=== PATIENT | female | born 2000 | race Two or more races ===

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

== ENCOUNTER 2021-07-28 23:45 | Observation (INO) | payer MEDICAID, OTHER ==
[~2021-07-28] VITALS: Ht 165.1 cm; Wt 105.2 kg
[2021-07-29] MEDS ORDERED: PNV1TABL76 PO (00:30)
[2021-07-29] MEDS ORDERED: ACETAMINOPHEN 500MG TABLET PO PRN (01:30)
[2021-07-29 02:30] LABS: CLARITY URINE CLOUDY (CLEAR); COLOR URINE YELLOW (YELLOW); KETONES URINE TRACE (NEGATIVE); LEUKOCYTE ESTERASE URINE NEGATIVE (NEGATIVE); NITRITE URINE NEGATIVE (NEGATIVE); OCCULT BLOOD URINE NEGATIVE (NEGATIVE); PROTEIN URINE TRACE (NEGATIVE); SPECIFIC GRAVITY URINE 1.027 (1.005-1.030)
== END 2021-07-29 03:50 | disposition home or self-care (01) ==
LOC: 8 EST LDRP 23:45
PROVIDERS: ADMIT Obstetrics & Gynecology; ATTEND Obstetrics & Gynecology
DX: O26.893 Other specified pregnancy related conditions, third trimester (principal); R10.30 Lower abdominal pain, unspecified; O99.891 Other specified diseases and conditions complicating pregnancy; M54.9 Dorsalgia, unspecified; Z3A.38 38 weeks gestation of pregnancy
CPT/HCPCS: 59025; 76805; 76817; 76818; 81003; G0378; 99281

== ENCOUNTER 2021-08-09 23:44 | Inpatient (IN) | payer OTHER ==
[~2021-08-09] VITALS: Ht 165.1 cm; Wt 106.6 kg
[~2021-08-09 23:44] MED LIST: PNV1TABL76 PO
[2021-08-10] MEDS ORDERED: CARBOPROST TROMETHAMINE 250 MCG/ML AMPUL IM PRN (00:45)
[2021-08-10] MEDS ORDERED: BUTORPHANOL TARTRATE 2 MG/ML VIAL IV PRN (00:45)
[2021-08-10] MEDS ORDERED: LACTATED RINGERS 1,000 ML IV SCH (00:45)
[2021-08-10] MEDS ORDERED: METHYLERGONOVINE MALEATE 0.2 MG/ML IM PRN ×3 (00:45→08:45)
[2021-08-10] MEDS ORDERED: DEXT 5%/LR + PITOCIN 20UNITS/L 1,000 ML IV SCH ×2 (00:45→08:30)
[2021-08-10] MEDS ORDERED: LIDOCAINE HCL 1% 10 MG/ML 10ML VIAL INJ SCH (00:45)
[2021-08-10] MEDS ORDERED: MISOPROSTOL 100MCG TABLET VG SCH (00:45)
[2021-08-10 01:13] LABS: BASOPHILS % 0.7 % (0.0-2.0); HEMATOCRIT. 32.3 % (36.0-48.0); LYMPHOCYTES % 36.2 % (20.0-50.0); MEAN CORPUSCULAR HEMOGLOBIN 26.5 pg (28.0-32.0); MEAN CORPUSCULAR VOLUME 78.2 fL (81.0-99.0); MEAN PLATELET VOLUME 7.7 fl (7.4-10.4); MONOCYTES % 8.8 % (2.0-8.0); NEUTROPHILS % 53.3 % (40.0-76.0); PLATELET 304 x1000/uL (130-400); RED BLOOD CELL COUNT 4.14 mill/uL (4.2-5.4); RED CELL DISTRIBUTION WIDTH 16.2 % (11.6-14.6)
[2021-08-10 01:13] LABS: CLARITY URINE CLEAR (CLEAR); COLOR URINE YELLOW (YELLOW); KETONES URINE NEGATIVE (NEGATIVE); LEUKOCYTE ESTERASE URINE 3+ (NEGATIVE); NITRITE URINE NEGATIVE (NEGATIVE); OCCULT BLOOD URINE NEGATIVE (NEGATIVE); PH URINE 6.5 (4.5-8.0); PROTEIN URINE NEGATIVE (NEGATIVE); SPECIFIC GRAVITY URINE 1.014 (1.005-1.030); UROBILINOGEN URINE 0.2 E.U./dL (0.2-1.0)
[2021-08-10 01:30] LABS: *BARBITURATES SCREEN URINE NEGATIVE (NEGATIVE); *COCAINE SCREEN URINE NEGATIVE (NEGATIVE); METHADONE URINE SCREEN NEGATIVE (NEGATIVE); OPIATES URINE SCREEN NEGATIVE (NEGATIVE); PHENCYCLIDINE URINE SCREEN NEGATIVE (NEGATIVE)
[2021-08-10 01:31] LABS: *BENZODIAZEPINES SCREEN URINE NEGATIVE (NEGATIVE); CANNABINOID URINE SCREEN NEGATIVE (NEGATIVE)
[2021-08-10 01:38] LABS: *AMPHETAMINES SCREEN URINE NEGATIVE (NEGATIVE)
[2021-08-10] MEDS ORDERED: ROPIVACAINE HCL/PF 100ML 200 ML INFIL SCH (02:00)
[2021-08-10] MEDS ORDERED: ROPIVACAINE HCL/PF EPIDURAL 200 ML EPI ONE (02:02)
[2021-08-10 02:25] LABS: INR 0.9; PARTIAL THROMBOPLASTIN TIME 25.1 sec (23.4-31.0); PROTHROMBIN TIME 9.9 sec (9.6-11.0)
[2021-08-10 07:44] LABS: HEPATITIS B SURFACE ANTIGEN NEGATIVE
[2021-08-10] MEDS ORDERED: HEMORRHOIDAL SUPP PR PRN (08:30)
[2021-08-10] MEDS ORDERED: RHO(D) IMMUNE GLOBULIN 300 MCG/SYR IM PRN (08:30)
[2021-08-10] MEDS ORDERED: LANOLIN OINT 7GM TUBE TOP PRN (08:30)
[2021-08-10] MEDS ORDERED: BISACODYL 10MG SUPP PR PRN (08:30)
[2021-08-10] MEDS ORDERED: GLYCERIN/WITCH HAZEL LEAF MEDICATED PAD TOP PRN (08:30)
[2021-08-10] MEDS ORDERED: IBUPROFEN 400MG TABLET PO PRN (08:30)
[2021-08-10] MEDS ORDERED: OXYCODONE HCL/ACETAMINOPHEN 5/325MG TABLET PO PRN (08:30)
[2021-08-10] MEDS: LABETALOL HCL 100MG TABLET PO SCH ×2 (09:08→21:05)
[2021-08-10] MEDS: IBUPROFEN 800MG TABLET PO PRN ×2 (09:43→21:05)
[2021-08-10 11:00] VITALS: BP 138/86
[2021-08-10] MEDS: BENZOCAINE/LANOLIN/ALOE VERA SPRAY TOP PRN (11:53)
[2021-08-10 12:00] VITALS: BP 125/86
[2021-08-10] MEDS: SIMETHICONE 80MG TABLET CHEW PO SCH ×2 (13:00→17:37)
[2021-08-10] MEDS: METHYLERGONOVINE MALEATE 0.2MG TABLET PO SCH ×2 (13:20→17:37)
[2021-08-10] MEDS: PRENATAL VIT/FE FUMARATE/FA TABLET PO SCH (13:20)
[2021-08-10] MEDS: MAGNESIUM/ALUMINUM HYDROXIDE/SIMETHICONE 30ML UDC PO SCH ×2 (13:21→17:38)
[2021-08-10 16:00] VITALS: BP 140/88
[2021-08-10 21:00] VITALS: BP 125/68
[2021-08-10] MEDS: DOCUSATE SODIUM 100MG CAPSULE PO SCH (21:05)
[2021-08-10 22:00] VITALS: BP 122/62
[2021-08-11 04:00] VITALS: BP 105/50
[2021-08-11] MEDS: IBUPROFEN 800MG TABLET PO PRN ×3 (04:21→21:48)
[2021-08-11 06:49] LABS: BASOPHILS % 0.4 % (0.0-2.0); EOSINOPHILS % 1.4 % (0.0-5.0); HEMATOCRIT. 25.6 % (36.0-48.0); HEMOGLOBIN. 8.7 g/dL (12.0-16.0); LYMPHOCYTES % 36.7 % (20.0-50.0); MEAN CORPUSCULAR HEMOGLOBIN 26.8 pg (28.0-32.0); MEAN CORPUSCULAR VOLUME 78.4 fL (81.0-99.0); MEAN PLATELET VOLUME 7.6 fl (7.4-10.4); MONOCYTES % 6.9 % (2.0-8.0); NEUTROPHILS % 54.6 % (40.0-76.0); PLATELET 198 x1000/uL (130-400); RED BLOOD CELL COUNT 3.27 mill/uL (4.2-5.4); RED CELL DISTRIBUTION WIDTH 16.2 % (11.6-14.6)
[2021-08-11 08:00] VITALS: BP 116/59
[2021-08-11] MEDS: SIMETHICONE 80MG TABLET CHEW PO SCH ×4 (08:00→21:47)
[2021-08-11] MEDS: METHYLERGONOVINE MALEATE 0.2MG TABLET PO SCH (09:50)
[2021-08-11] MEDS: MAGNESIUM/ALUMINUM HYDROXIDE/SIMETHICONE 30ML UDC PO SCH ×4 (09:50→21:46)
[2021-08-11] MEDS: FERROUS SULFATE 325MG TABLET PO SCH ×2 (09:51→13:43)
[2021-08-11] MEDS: PRENATAL VIT/FE FUMARATE/FA TABLET PO SCH (09:51)
[2021-08-11] MEDS: LABETALOL HCL 100MG TABLET PO SCH ×2 (09:51→21:47)
[2021-08-11] MEDS: BENZOCAINE/LANOLIN/ALOE VERA SPRAY TOP PRN (09:57)
[2021-08-11 15:44] VITALS: BP 117/73
[2021-08-11 20:00] VITALS: BP 119/76
[2021-08-11] MEDS: DOCUSATE SODIUM 100MG CAPSULE PO SCH (21:47)
[2021-08-12 04:00] VITALS: BP 104/59
[2021-08-12 08:30] VITALS: BP 118/64
[2021-08-12] MEDS ORDERED: LABE100T5 PO (08:52)
== END 2021-08-12 09:28 | disposition home or self-care (01) | DRG 560 ==
LOC: OBSVTOIN 23:44 → 8 EST LDRP 23:44 → 8 EST A/PP 08-10 10:24 → 8EST 08-10 16:52
PROVIDERS: ADMIT Obstetrics & Gynecology; ATTEND Obstetrics & Gynecology
PROC: 10E0XZZ Delivery of Products of Conception, External Approach (ICD-10-PCS; principal; 2021-08-10)
PROC: 0KQM0ZZ Repair Perineum Muscle, Open Approach (ICD-10-PCS; 2021-08-10)
PROC: 3E0R3BZ Introduction of Anesthetic Agent into Spinal Canal, Percutaneous Approach (ICD-10-PCS; 2021-08-10)
PROC: 00HU33Z Insertion of Infusion Device into Spinal Canal, Percutaneous Approach (ICD-10-PCS; 2021-08-10)
DX: O99.02 Anemia complicating childbirth (principal); Z37.0 Single live birth; D64.9 Anemia, unspecified; Z20.822 Contact with and (suspected) exposure to COVID-19; O70.1 Second degree perineal laceration during delivery; Z3A.39 39 weeks gestation of pregnancy
CPT/HCPCS: 36415; 76805; 80305; 81003; 85025; 86592; 86703; 86762; 86850; 86900; 87340; 87426; 99281; G0378; J2590; J2795; J7120

== ENCOUNTER 2024-02-21 10:52 | Emergency (ER) | payer MEDICAID ==
[~2024-02-21] VITALS: Ht 165.1 cm; Wt 59.8 kg
[~2024-02-21 10:52] MED LIST changes: +LABE100T9 PO
[2024-02-21 10:55] VITALS: O2SAT 100
[2024-02-21 11:01] VITALS: BP 127/66; PULSE 71; RESP 16; TEMP 98.7; O2SAT 99
[2024-02-21 11:22] LABS: BASOPHILS % 0.8 % (0.0-2.0); EOSINOPHILS % 2.1 % (0.0-5.0); HEMATOCRIT. 36.3 % (36.0-48.0); HEMOGLOBIN. 11.9 g/dL (12.0-16.0); LYMPHOCYTES % 45.4 % (20.0-50.0); MEAN CORPUSCULAR HEMOGLOBIN 28.5 pg (28.0-32.0); MEAN CORPUSCULAR HGB CONC 32.8 g/dL (31.0-37.0); MEAN CORPUSCULAR VOLUME 86.9 fL (81.0-99.0); MEAN PLATELET VOLUME 6.9 fl (7.4-10.4); MONOCYTES % 9.8 % (2.0-8.0); NEUTROPHILS % 41.9 % (40.0-76.0); PLATELET 301 x1000/uL (130-400); RED BLOOD CELL COUNT 4.17 mill/uL (4.2-5.4); RED CELL DISTRIBUTION WIDTH 13.6 % (11.6-14.6); WHITE BLOOD COUNT 6.4 x1000/uL (4.5-11.0)
[2024-02-21 11:29] LABS: CHLORIDE 108 mEq/L (98-107); POTASSIUM 3.8 mEq/L (3.5-5.1); SODIUM 136 mEq/L (136-145)
[2024-02-21 11:30] LABS: CALCIUM 9.4 mg/dL (8.7-10.4); CARBON DIOXIDE 23 mEq/L (21-32)
[2024-02-21 11:35] LABS: CREATININE 0.6 mg/dL (0.6-1.0); GLUCOSE 105 mg/dL (70-105); UREA NITROGEN BLOOD 8 mg/dL (9-23)
[2024-02-21 12:21] LABS: B-HCG QUANTITATIVE 3944 mIU/mL (<3)
== END 2024-02-21 13:40 | disposition left against medical advice (07) ==
LOC: ER 10:59
DX: O46.91 Antepartum hemorrhage, unspecified, first trimester (principal); R10.2 Pelvic and perineal pain; D64.9 Anemia, unspecified; Z3A.01 Less than 8 weeks gestation of pregnancy
CPT/HCPCS: 36415; 76801; 80048; 84702; 85025; 86850; 86900; 99284